=== PATIENT | female | born 1960 | race Caucasian/White ===

== ENCOUNTER 2017-03-24 15:02 | Emergency (ER) | payer OTHER ==
[~2017-03-24] VITALS: Ht 160 cm; Wt 66.2 kg
[~2017-03-24 15:02] MED LIST: ADVAIR DISKUS 51 AER INH; ALBUTEROL1.25 MG/3 NEB; APRODINE1 TAB PO; ATROVENT H0.017 MG/1 IH; LAC PO; LEVAQUIN750 MG PO; MEDDP PO; MONTELUKAST SOD10 M1 PO; PHEDML PO; PULMICORT0.5 MG/2 M IH; QVAR0.08 MG/Ac IH; SING10 PO; VENTOLIN H0.09 MG/A1 INH; ZITHROMAX TRI-500 MG PO; ZOC20 PO
[2017-03-24 15:06] VITALS: BP 135/94
== END 2017-03-24 17:43 | disposition left against medical advice (07) ==
LOC: ED 15:02
DX: Z53.21 Procedure and treatment not carried out due to patient leaving prior to being seen by health care provider (principal)

== ENCOUNTER 2017-03-24 21:07 | Emergency (ER) | payer OTHER ==
[2017-03-24 21:57] VITALS: BP 110/75
== END 2017-03-24 21:57 | disposition home or self-care (01) ==
LOC: ED 21:07
DX: S90.561A Insect bite (nonvenomous), right ankle, initial encounter (principal); L03.113 Cellulitis of right upper limb; Z88.6 Allergy status to analgesic agent; W57.XXXA Bitten or stung by nonvenomous insect and other nonvenomous arthropods, initial encounter; Y93.89 Activity, other specified; Y92.89 Other specified places as the place of occurrence of the external cause; Y99.8 Other external cause status

== ENCOUNTER 2017-04-09 09:52 | Emergency (ER) | payer OTHER ==
[~2017-04-09] VITALS: Ht 162.6 cm; Wt 64.4 kg
[2017-04-09 12:57] VITALS: BP 120/76
== END 2017-04-09 12:57 | disposition home or self-care (01) ==
LOC: ED 09:52
DX: S82.891A Other fracture of right lower leg, initial encounter for closed fracture (principal); J45.909 Unspecified asthma, uncomplicated; X58.XXXA Exposure to other specified factors, initial encounter; Y93.89 Activity, other specified; Y99.8 Other external cause status; Y92.89 Other specified places as the place of occurrence of the external cause
CPT/HCPCS: J3010; Q0092

== ENCOUNTER 2019-04-05 09:19 | Emergency (ER) | payer OTHER ==
[~2019-04-05] VITALS: Ht 160 cm; Wt 64.0 kg
[2019-04-05 09:27] VITALS: Ht 160 cm; Wt 64.0 kg
[2019-04-05 11:06] VITALS: BP 118/78
== END 2019-04-05 11:06 | disposition home or self-care (01) ==
LOC: ED 09:19
DX: M54.5 Low back pain (principal); J45.909 Unspecified asthma, uncomplicated; Z88.6 Allergy status to analgesic agent

== ENCOUNTER 2020-12-18 11:36 | Emergency (ER) | payer MEDICAID ==
[~2020-12-18] VITALS: Ht 160 cm; Wt 61.2 kg
[2020-12-18 11:49] VITALS: Ht 160 cm; Wt 61.2 kg
[2020-12-18 12:58] LABS: BASOPHIL % 0.6 % (0.2-1.3); RED CELL DISTRIBUTION WIDTH 13.1 % (12.3-17.7)
[2020-12-18 13:04] LABS: CALCIUM 9.4 mg/dL (8.5-10.1); CHLORIDE SERUM 99 mmol/L (98-107); CREATININE SERUM 0.8 mg/dL (0.6-1.0); GFR1 > 60 mL/min; GLUCOSE SERUM 108 mg/dL (74-106); SODIUM SERUM 134 mmol/L (136-145)
[2020-12-18 13:18] LABS: ALKALINE PHOSPHATASE 115 U/L (46-116); ALT/SGPT 24 U/L (14-59); AMYLASE 38 U/L (25-115); AST/SGOT 17 U/L (15-37); BILIRUBIN TOTAL 0.5 mg/dL (0.20-1.00); LIPASE 104 IU/L (73-393); TOTAL PROTEIN, SERUM 8.2 g/dL (6.4-8.2)
[2020-12-18 13:28] LABS: ALBUMIN 3.2 g/dL (3.4-5.0)
[2020-12-18 13:44] LABS: PLATELET COUNT 578 x10^3mcL (179-408)
[2020-12-18 17:14] VITALS: BP 119/62
== END 2020-12-18 17:14 | disposition home or self-care (01) ==
LOC: ED 11:36
PROVIDERS: Emergency Medicine
DX: K57.92 Diverticulitis of intestine, part unspecified, without perforation or abscess without bleeding (principal); J45.909 Unspecified asthma, uncomplicated; Z88.6 Allergy status to analgesic agent
CPT/HCPCS: J2270; J7030

== ENCOUNTER 2020-12-25 06:38 | Emergency (ER) | payer MEDICAID ==
[~2020-12-25] VITALS: Ht 162.6 cm; Wt 65.8 kg
[2020-12-25 06:53] VITALS: Ht 162.6 cm; Wt 65.8 kg
[2020-12-25 10:55] VITALS: BP 110/69
== END 2020-12-25 10:55 | disposition home or self-care (01) ==
LOC: ED 06:38
DX: F41.9 Anxiety disorder, unspecified (principal); R10.11 Right upper quadrant pain; R10.12 Left upper quadrant pain
CPT/HCPCS: J2060; J3490; J7030